=== PATIENT | female | born 1950 | race Caucasian/White ===

== ENCOUNTER 2021-02-26 09:56 | Observation (INO) ==
[2021-02-26 10:57] LABS: ABS Eosinophils 0.1 10^3/ul (0-0.6); ABS Lymphocytes 2.1 10^3/ul (1.0-4.8); ABS Monocytes 0.4 10^3/ul (0-0.8); Hematocrit 48 % (35-47); Hemoglobin 15.8 g/dL (12.0-16.0); Lymphocyte % 38.3 %; Mean Corpuscular HGB Conc 33 g/dL (31-36); Mean Corpuscular Hemoglobin 32 pg (27-31); Mean Corpuscular Volume 96 fL (80-97); Nucleated Red Blood Cells % 0.1; Platelet Count Platelets clumped. 10^3/uL (150-450); Red Blood Count 4.98 10^6 /uL (3.70-4.87); Red Cell Distribution Width 13 % (10-15); White Blood Count 5.6 10^3/uL (3.5-10.8)
[2021-02-26 11:00] LABS: Albumin 4.9 g/dL (3.2-5.2); Blood Urea Nitrogen 31 mg/dL (6-24); CO2 Carbon Dioxide 24 mmol/L (22-32); Calcium 10.2 mg/dL (8.6-10.3); Chloride 102 mmol/L (101-111); EGFR African American 65.8 (>60); EGFR Non-African American 54.3 (>60); Glucose 104 mg/dL (70-100); Sodium 136 mmol/L (135-145); Total Protein 8.1 g/dL (6.4-8.9)
[2021-02-26 11:01] LABS: ALT 21 U/L (7-52); Albumin/Globulin Ratio 1.5 (1-3); Alkaline Phosphatase 67 U/L (34-104); Globulin 3.2 g/dL (2-4)
[2021-02-26 11:08] LABS: Troponin I 0.03 ng/mL (<0.03)
[2021-02-26 11:13] LABS: Activated Partial Thrombo Time 21.3 seconds (26.0-38.0); INR 0.94 (0.82-1.09)
[2021-02-26] MEDS ORDERED: Iodixanol (CONTRAST) 320 MG/ML 100 ML SDV IV ONE (11:19)
[2021-02-26 11:29] LABS: TSH Ultra Thyroid Stim Horm 4.55 mcIU/mL (0.34-5.60)
[2021-02-26 12:03] LABS: Anion Gap 10 mmol/L (2-11); Magnesium 2.3 mg/dL (1.9-2.7)
[2021-02-26 13:40] LABS: Urine Appearance Clear; Urine Bilirubin Negative (Negative); Urine Blood Negative (Negative); Urine Color Straw; Urine Glucose Negative (Negative); Urine Ketones Negative (Negative); Urine Nitrite Negative (Negative); Urine Protein Negative (Negative); Urine Specific Gravity 1.004 (1.002-1.030); Urine Urobilinogen Negative (Negative)
[2021-02-26] MEDS ORDERED: Aspirin EC 81 mg TAB.EC (enteric coated) PO ONE (13:43)
[2021-02-26 14:07] LABS: Potassium Redraw 4.1 mmol/L (3.5-5.0)
[2021-02-26] MEDS ORDERED: Lactated Ringers 1000 ml BAG 1,000 ML IV ONE (14:30)
[2021-02-26] MEDS ORDERED: Ondansetron 4 mg VIAL 2 MG/ML 2 ml VIAL IV PRN (14:37)
[2021-02-26 15:26] LABS: Troponin I 0.11 ng/mL (<0.03)
[2021-02-26 16:06] LABS: Cholesterol 260 mg/dL; HDL Cholesterol 110.4 mg/dL; LDL Cholesterol 127 mg/dL; Triglycerides 114 mg/dL
[2021-02-26] MEDS ORDERED: Enoxaparin 40 MG/0.4 ML SYR SUBCUT SCH (17:00)
[2021-02-26 19:09] LABS: Troponin I 0.11 ng/mL (<0.03)
[2021-02-26 19:30] LABS: Folate > 20.00 ng/mL (5.90-24.80)
[2021-02-26 19:31] LABS: Vitamin B12 584 pg/mL (180-914)
[2021-02-27 06:57] LABS: ABS Basophils 0.1 10^3/ul (0-0.2); ABS Eosinophils 0.2 10^3/ul (0-0.6); ABS Lymphocytes 2.1 10^3/ul (1.0-4.8); ABS Monocytes 0.6 10^3/ul (0-0.8); ABS Neutrophils 3.1 10^3/ul (1.5-7.7); Eosinophil % 2.9 %; Hematocrit 38 % (35-47); Hemoglobin 12.8 g/dL (12.0-16.0); Lymphocyte % 34.6 %; Mean Corpuscular HGB Conc 34 g/dL (31-36); Mean Corpuscular Hemoglobin 32 pg (27-31); Mean Corpuscular Volume 93 fL (80-97); Mean Platelet Volume 9.7 fL (7.4-10.4); Platelet Count 229 10^3/uL (150-450); Red Blood Count 4.04 10^6 /uL (3.70-4.87); Red Cell Distribution Width 13 % (10-15)
[2021-02-27 07:15] LABS: Calcium 8.6 mg/dL (8.6-10.3); EGFR African American 72.3 (>60); EGFR Non-African American 59.8 (>60); Potassium 3.7 mmol/L (3.5-5.0)
[2021-02-27 08:10] LABS: Troponin I 0.03 ng/mL (<0.03)
[2021-02-27] MEDS ORDERED: Cholecalciferol (VIT D3) 1,000 unit TAB PO SCH (09:00)
[2021-02-27] MEDS ORDERED: Aspirin EC 81 mg TAB.EC (enteric coated) PO SCH (09:00)
[2021-02-27 11:25] VITALS: BP 111/68
== END 2021-02-27 12:50 | disposition home or self-care (01) ==
LOC: MEDTELE 09:56 → ED 09:56 → MEDTELE 17:00
PROVIDERS: ADMIT Internal Medicine; ATTEND Internal Medicine